=== PATIENT | male | born 1955 | race Caucasian/White ===

== ENCOUNTER → 2016-12-21 | Outpatient (CLI) | payer BC ==
[~2016-12-21] MED LIST: ACET-1256 PO; ASPI81TA28 PO; CYCL10TA6 PO; GABA600T PO; HYDR25TA4 PO; LISI40TA PO; MULT-506 PO; OMEP40CA PO; SIMV10TA2 PO
--- NOTE | 2016-12-21 10:50 | DIAGNOSTIC IMAGING REPORT ---
RIGHT ELBOW 3 VIEWS HISTORY: Right elbow pain. Fall. COMPARISON: None. FINDINGS: There is no fracture or dislocation. Soft tissue swelling at the olecranon. No joint effusion. Mild degenerative changes seen within the right elbow. No radiopaque foreign bodies. IMPRESSION: 1. No fractures within the right elbow. 2. Soft tissue swelling at the olecranon. This could represent a bursitis or soft tissue hematoma. Electronically signed by: Ron Norris M.D. 12/21/2016 10:49 AM Dictated Date/Time: 12/21/2016 10:48 AM
== END | disposition home or self-care (01) ==
LOC: C.RAD1850 10:18
PROVIDERS: ATTEND Family Medicine
DX: M24.021 Loose body in right elbow (principal); R22.31 Localized swelling, mass and lump, right upper limb

== ENCOUNTER → 2017-01-02 | Outpatient (CLI) | payer BC ==
--- NOTE | 2017-01-02 09:13 | DIAGNOSTIC IMAGING REPORT ---
RIGHT HIP 2 VIEWS CLINICAL HISTORY: RIGHT HIP PAIN COMPARISON: None. DISCUSSION: No fractures are visualized. There are no erosive or destructive changes. The joint space appears well-preserved for age. IMPRESSION: Unremarkable conventional radiographic evaluation of the right hip for age Electronically signed by: Rafal Vanegas M.D. 01/02/2017 9:12 AM Dictated Date/Time: 01/02/2017 9:11 AM
== END | disposition home or self-care (01) ==
LOC: C.RDSM 08:44
PROVIDERS: ATTEND Physician Assistant
DX: M25.551 Pain in right hip (principal)

== ENCOUNTER → 2017-02-15 | Outpatient (CLI) | payer BC ==
[2017-02-19 14:18] LABS: QUANTIF TB AG-NIL <0.00 IU/ML; QUANTIFERON NIL 0.05 IU/ML
== END | disposition home or self-care (01) ==
LOC: C.LABSPEC 12:41
PROVIDERS: ATTEND Ophthalmology
DX: H44.113 Panuveitis, bilateral (principal)

== ENCOUNTER → 2017-02-15 | Outpatient (CLI) | payer BC ==
--- NOTE | 2017-02-15 13:59 | DIAGNOSTIC IMAGING REPORT ---
TWO VIEW CHEST CLINICAL HISTORY: Glaucoma. Possible viral infection. FINDINGS: PA and lateral chest radiographs are obtained. No prior studies are available for comparison at the time of dictation. The cardiomediastinal silhouette is unremarkable. The lungs and pleural spaces are clear. There is no pneumothorax. The bony thorax appears intact. IMPRESSION: No active disease in the chest. Electronically signed by: Dimitris Sykes M.D. 02/15/2017 1:57 PM Dictated Date/Time: 02/15/2017 1:57 PM
--- NOTE | 2017-03-19 13:14 | CODING QUERY NO DIAGNOSIS ---
TREATMENT RENDERED WITHOUT A DIAGNOSIS To promote full compliance with coding requirements relating to patient care, physician participation is requested in all cases of manager security uncertainty. Please assist us with providing a diagnosis/symptom for the test(s) below: A diagnosis/symptom was not documented on your Order. A valid diagnosis/symptom is required to bill all insurances. Please remember that we are unable to code a diagnosis of rule out, probable, possible, questionable, or suspected. Tests that require a diagnosis: * CHEST 2 VIEWS ROUTINE DIAGNOSIS: Provider Signature: Date: Thank you Alicia Neal [id number] Once completed, please kindly fax back to [phone] For questions please call [phone]
== END | disposition home or self-care (01) ==
LOC: C.RAD 13:19
PROVIDERS: ATTEND Ophthalmology
DX: H44.111 Panuveitis, right eye (principal); B58.9 Toxoplasmosis, unspecified